=== PATIENT | female | born 1935 | race American Indian/Alaskan Native ===

== ENCOUNTER 2017-04-01 21:07 | Emergency (ER) | payer MEDICARE ==
[2017-04-01 22:16] LABS: Chloride 94.5 mmol/L (98-107)
[2017-04-01 22:20] LABS: Basophils % (Auto) 0.2 % (0.0-1.8); Eosinophils % (Auto) 0.4 % (0.0-4.3); Hematocrit 36.8 % (30.3-42.9); Hemoglobin 11.6 gm/dl (10.1-14.3); Mean Corpuscular HGB Conc 32 % (30-34); Mean Corpuscular Hemoglobin 30 pg (28-32); Mean Corpuscular Volume 96 fl (79-97); Platelet Count 181 K/mm3 (140-440); Red Blood Count 3.85 M/mm3 (3.65-5.03); Red Cell Distribution Width 18.6 % (13.2-15.2); White Blood Count 11.7 K/mm3 (4.5-11.0)
--- NOTE | 2017-04-01 22:32 | XRay Report ---
FINAL REPORT PROCEDURE: XR CHEST 1V AP TECHNIQUE: Chest radiograph anteroposterior view. CPT 15719 HISTORY: Shortness of breath COMPARISON: No prior studies are available for comparison. FINDINGS: Heart: Prominent cardiac silhouette Mediastinum/Vessels: Prominent mediastinal contour which may be related to aortic aneurysm or ectasia. Adenopathy can also not be excluded. Lungs/Pleural space: There is shallow inspiration. Linear left midlung atelectasis or scarring. Possible left lung base airspace opacity and effusion. No pneumothorax. Bony thorax: No acute osseous abnormality. Life support devices: Right pacemaker. IMPRESSION: Prominent mediastinal contour may be related to tortuous aorta or possible aortic aneurysm/ectasia. Recommend further evaluation with CT chest if not already performed to exclude aneurysm or possible adenopathy. There is shallow inspiration. However findings are suspicious for left lung base atelectasis or infiltrate and left pleural effusion. Prominent cardiac silhouette.
[2017-04-01] MEDS ORDERED: TESSALON PERLES PO ONE (23:10)
[2017-04-01 23:17] LABS: INR 1.8 (0.87-1.13)
--- NOTE | 2017-04-02 | Cat Scan Report ---
FINAL REPORT PROCEDURE: CT chest without contrast. TECHNIQUE: Computerized axial tomography of the chest was performed without contrast material. This study is performed without intravenous contrast and the sensitivity for pathology, including neoplasms, adenopathy, abscess, pulmonary embolism and aortic dissection, is reduced. HISTORY: Cough, abnormal mediastinum on chest radiograph, recommended additional evaluation. COMPARISON: Chest radiograph done earlier today. TECHNICAL QUALITY: Satisfactory. FINDINGS: The trachea and central bronchi appear normal. There is mild ectasia and elongation of the thoracic aorta. There is atherosclerotic calcification scattered throughout the thoracic aorta. The central pulmonary arteries have normal calibers. There are small nonspecific mediastinal lymph nodes. The heart size is enlarged. There are no pleural effusions. The adrenal glands are not enlarged. The lungs are clear. There are no signs of pneumonia. There are no definite pulmonary masses. The thoracic skeleton appears intact. IMPRESSION: Atherosclerotic ectasia of the thoracic aorta. Cardiomegaly. No significant abnormalities identified.
--- NOTE | 2017-04-02 01:02 | Emergency Department Report ---
- General Chief Complaint: Dyspnea/Respdistress Stated Complaint: COUGH,SOB Time Seen by Provider: 04/01/17 22:17 Source: patient, family Mode of arrival: Wheelchair Limitations: Physical Limitation - History of Present Illness Initial Comments: 81-year-old female with a past medical history CHF, diabetes, hypertension, end- stage renal disease on dialysis, and pacemaker presents to the hospital with complaints of cough 3 days. Patient rolled here with her family via car from [place] to visit a family member. She developed cough upon arrival 3 days ago that has progressively worsened. Cough is nonproductive but sounds wet at times. Patient denies pain, fever, or shortness of breath. 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 Patient has chronic right leg issue secondary to recent knee surgery and is wheelchair-bound. Patient is receiving dialysis at a local clinic. Last dialysis was Sunday patient is due again Sunday the . - Related Data Home Medications Medication Instructions Recorded Confirmed Last Taken Allopurinol [Zyloprim] 100 mg PO DAILY 04/01/17 04/01/17 04/01/17 Furosemide [Lasix TAB] 40 mg PO BID 04/01/17 04/01/17 04/01/17 Omeprazole [Omeprazole] 20 mg PO DAILY 04/01/17 04/01/17 04/01/17 Pravastatin Sodium [Pravachol] 40 mg PO QHS 04/01/17 04/01/17 03/31/17 Warfarin [Coumadin] 5 mg PO DAILY 04/01/17 04/01/17 04/01/17 Previous Rx's Medication Instructions Recorded Last Taken Type Benzonatate [Tessalon Perles] 100 mg PO Q8HR PRN #30 capsule 04/02/17 Unknown Rx Allergies Allergy/AdvReac Type Severity Reaction Status Date / Time No Known Allergies Allergy Unverified 04/01/17 21:31 ED Review of Systems ROS: Stated complaint: COUGH,SOB Other details as noted in HPI Comment: All other systems reviewed and negative Other: Constitutional: No fevers chills Eyes: No eye pain visual changes ENT: No ear pain or throat pain Neck: Denies pain Respiratory: Denies cough wheezing Cardiovascular: Denies chest pain, palpitations, syncope GI: Denies abdominal pain, nausea, vomiting, diarrhea : Denies dysuria Musculoskeletal: as per hpi Skin: Family noticed erythematous rash to left forearm today Neurologic: Denies headache, numbness, weakness Psychiatric: Denies suicidal ideation, hallucinations ED Past Medical Hx - Past Medical History Previous Medical History?: Yes Hx Hypertension: Yes Hx Congestive Heart Failure: Yes Hx Diabetes: Yes Hx Kidney Stones: Yes Additional medical history: ? afib hx, on coumadin, pacemaker - Surgical History Past Surgical History?: Yes Hx Pacemaker: Yes (11/08) Additional Surgical History: Right knee surgery 01/08 - Social History Smoking Status: Never Smoker Substance Use Type: None - Medications Home Medications: Home Medications Medication Instructions Recorded Confirmed Last Taken Type Allopurinol [Zyloprim] 100 mg PO DAILY 04/01/17 04/01/17 04/01/17 History Furosemide [Lasix TAB] 40 mg PO BID 04/01/17 04/01/17 04/01/17 History Omeprazole [Omeprazole] 20 mg PO DAILY 04/01/17 04/01/17 04/01/17 History Pravastatin Sodium [Pravachol] 40 mg PO QHS 04/01/17 04/01/17 03/31/17 History Warfarin [Coumadin] 5 mg PO DAILY 04/01/17 04/01/17 04/01/17 History Benzonatate [Tessalon Perles] 100 mg PO Q8HR PRN #30 capsule 04/02/17 Unknown Rx ED Physical Exam - General Limitations: Physical Limitation - Other Other exam information: General: No limitations, patient is alert in no acute distress Head exam: Atraumatic, normocephalic Eyes exam: Normal appearance ENT: Moist mucous membrane, normal oropharynx Neck exam: Normal inspection, full range of motion, no meningismus nontender Respiratory exam: Clear to auscultation bilateral, no wheezes, rales, crackles Cardiovascular:irregular rhythm Abdomen: Soft, nondistended, and nontender, with normal bowel sounds, no rebound, or guarding Extremity: Full range of motion normal inspection no deformity, left positive thrill to left AV dialysis access of the upper arm. Left forearm with pink rash that is nonblanching and not pruritic. No warmth. Back: Normal Inspection, full range of motion, no tenderness Neurologic: Alert, oriented x3, cranial nerves intact, no motor or sensory deficit Psychiatric: normal affect, normal mood Skin: See extremity exam ED Course Vital Signs 04/01/17 04/01/17 21:31 23:00 Temperature 98.7 F 98.5 F Pulse Rate 45 L 77 Respiratory 19 Rate Blood Pressure 90/54 Blood Pressure 104/67 [Right] O2 Sat by Pulse 98 100 Oximetry - Reevaluation(s) Reevaluation #1: 04/02/17 01:13 pt feel better with improved cough after Tessalon Perles. Room air saturation 97-100%. Systolic pressure 108. Patient feels better ED Medical Decision Making - Lab Data Result diagrams: 04/01/17 21:42 04/01/17 21:42 Lab Results 04/01/17 04/01/17 04/01/17 Range/Units 21:42 21:42 22:40 WBC 11.7 H (4.5-11.0) K/mm3 RBC 3.85 (3.65-5.03) M/mm3 Hgb 11.6 (10.1-14.3) gm/dl Hct 36.8 (30.3-42.9) % MCV 96 (79-97) fl MCH 30 (28-32) pg MCHC 32 (30-34) % RDW 18.6 H (13.2-15.2) % Plt Count 181 (140-440) K/mm3 Lymph % (Auto) 3.1 L (13.4-35.0) % [place] % (Auto) 7.0 (0.0-7.3) % Eos % (Auto) 0.4 (0.0-4.3) % Baso % (Auto) 0.2 (0.0-1.8) % Lymph # 0.4 L (1.2-5.4) K/mm3 [place] # 0.8 (0.0-0.8) K/mm3 Eos # 0.0 (0.0-0.4) K/mm3 Baso # 0.0 (0.0-0.1) K/mm3 Seg Neutrophils % 89.3 H (40.0-70.0) % Seg Neutrophils # 10.5 H (1.8-7.7) K/mm3 PT 21.8 H (12.2-14.9) Sec. INR 1.80 H (0.87-1.13) APTT 29.0 (24.2-36.6) Sec. Sodium 138 (137-145) mmol/L Potassium 5.0 (3.6-5.0) mmol/L Chloride 94.5 L (98-107) mmol/L Carbon Dioxide 26 (22-30) mmol/L Anion Gap 23 mmol/L BUN 33 H (7-17) mg/dL Creatinine 4.7 H (0.7-1.2) mg/dL Estimated GFR 9 ml/min BUN/Creatinine Ratio 7 % Glucose 348 H (65-100) mg/dL POC Glucose (70-105) Calcium 9.0 (8.4-10.2) mg/dL Troponin T 0.253 H* (0.00-0.029) ng/mL Triglycerides 58 (2-149) mg/dL Cholesterol 84 (50-199) mg/dL LDL Cholesterol Direct 25 L (50-130) mg/dL HDL Cholesterol 48 (40-59) mg/dL Cholesterol/HDL Ratio 1.75 % 04/01/17 04/02/17 Range/Units 22:47 00:27 WBC (4.5-11.0) K/mm3 RBC (3.65-5.03) M/mm3 Hgb (10.1-14.3) gm/dl Hct (30.3-42.9) % MCV (79-97) fl MCH (28-32) pg MCHC (30-34) % RDW (13.2-15.2) % Plt Count (140-440) K/mm3 Lymph % (Auto) (13.4-35.0) % [place] % (Auto) (0.0-7.3) % Eos % (Auto) (0.0-4.3) % Baso % (Auto) (0.0-1.8) % Lymph # (1.2-5.4) K/mm3 [place] # (0.0-0.8) K/mm3 Eos # (0.0-0.4) K/mm3 Baso # (0.0-0.1) K/mm3 Seg Neutrophils % (40.0-70.0) % Seg Neutrophils # (1.8-7.7) K/mm3 PT (12.2-14.9) Sec. INR (0.87-1.13) APTT (24.2-36.6) Sec. Sodium (137-145) mmol/L Potassium (3.6-5.0) mmol/L Chloride (98-107) mmol/L Carbon Dioxide (22-30) mmol/L Anion Gap mmol/L BUN (7-17) mg/dL Creatinine (0.7-1.2) mg/dL Estimated GFR ml/min BUN/Creatinine Ratio % Glucose (65-100) mg/dL POC Glucose 381 H (70-105) Calcium (8.4-10.2) mg/dL Troponin T 0.244 H* (0.00-0.029) ng/mL Triglycerides (2-149) mg/dL Cholesterol (50-199) mg/dL LDL Cholesterol Direct (50-130) mg/dL HDL Cholesterol (40-59) mg/dL Cholesterol/HDL Ratio % - EKG Data -: EKG Interpreted by Me (a fib, 94, RBB, no stemi) - Radiology Data Radiology results: report reviewed Chest x-ray: Prominent mediastinal contour. CT recommended. Shallow inspiration. Left lung atelectasis or infiltrate and a left pleural effusion suspected. Prominent cardiac silhouette CT chest without contrast: Atherosclerotic ectasia of the thoracic aorta. No cardiomegaly. No significant abnormalities - Medical Decision Making CT does not show any acute infiltrates or abnormalities. Patient is not febrile. Positive URI symptoms and cough. No indication for antibiotics at this time. 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 fib and patient has a pacemaker. Patient's troponin is elevated but repeat shows no increase in likely elevated at baseline secondary to ESRD. Hyperglycemia improved with insulin. Patient be discharged home on medication for cough and encouraged to follow-up with her dialysis as scheduled. Left arm does not appear to be an infection and patient instructed to continue to monitor rash - Differential Diagnosis pneumonia, bronchitis, CHF, URI Critical Care Time: No Critical care attestation.: If time is entered above; I have spent that time in minutes in the direct care of this critically ill patient, excluding procedure time. ED Disposition Clinical Impression: URI (upper respiratory infection), Rash, Anticoagulated on Coumadin, Atrial fibrillation, Ectatic thoracic aorta, ESRD on dialysis, Diabetes mellitus with hyperglycemia Disposition: DC-01 TO HOME OR SELFCARE Is pt being admited?: No Does the pt Need Aspirin: No Condition: Stable Instructions: Upper Respiratory Infection (ED) Additional Instructions: Take medications as prescribed. Return if symptoms worsen. Continue with your dialysis and your current medications. You have been provided a copy of the labs and imaging results to take to doctors for follow-up. The INR is slightly therapeutic agent may need adjustment of Coumadin. Please follow up with your doctors for further medication adjustment. Prescriptions: Benzonatate [Tessalon Perles] 100 mg PO Q8HR PRN #30 capsule PRN Reason: Cough Referrals: PRIMARY CARE, [Primary Care Provider] - 3-5 Days PETTY PANDYA MD [Staff Physician] - 3-5 Days Time of Disposition: 01:34
[2017-04-02 02:37] VITALS: BP 101/61
== END 2017-04-02 02:00 | disposition home or self-care (01) ==
LOC: ED 21:07
DX: J06.9 Acute upper respiratory infection, unspecified (principal); I48.91 Unspecified atrial fibrillation; I77.810 Thoracic aortic ectasia; E11.22 Type 2 diabetes mellitus with diabetic chronic kidney disease; I12.0 Hypertensive chronic kidney disease with stage 5 chronic kidney disease or end stage renal disease; N18.6 End stage renal disease; Z99.2 Dependence on renal dialysis; E11.65 Type 2 diabetes mellitus with hyperglycemia
CPT/HCPCS: 36415; 71010; 71250; 80048; 80061; 82962; 84484; 85025; 85610; 85730; 93005; 93010; 96374; J1815